=== PATIENT | male | born 1930 | race Caucasian/White ===

== ENCOUNTER 2018-04-29 08:16 | Day surgery (SDC) | payer MEDICARE, OTHER ==
[2018-04-28 14:29] LABS: BASOPHILS # (AUTO) 0.1 X10'3 (0-0.2); BASOPHILS % (AUTO) 1.6 % (0-1); EOSINOPHILS # (AUTO) 0.3 X10'3 (0-0.9); EOSINOPHILS % (AUTO) 3.2 % (0-6); LYMPHOCYTES # (AUTO) 1.2 X10'3 (1.1-4.8); MEAN CORPUSCULAR HEMOGLOBIN 29.7 PG (27.0-31.0); MEAN PLATELET VOLUME 9.8 FL (7.4-10.4); MONOCYTES # (AUTO) 0.8 X10'3 (0-0.9); MONOCYTES % (AUTO) 10.2 % (2-12); NEUTROPHILS # (AUTO) 5.6 X10'3 (1.8-7.7); PRE OP HEMATOCRIT 44.6 % (42.0-52.0); PRE OP HEMOGLOBIN 14.7 g/dL (14.0-17.9); PRE OP PLATELET COUNT 230 X10'3 (140-440); RED BLOOD COUNT 4.96 X10'6 (4.70-6.10); RED CELL DISTRIBUTION WIDTH 14.9 % (11.5-14.5)
[2018-04-28 14:29] LABS: CLARITY,URINE CLEAR (Clear); COLOR,URINE YELLOW (Yellow); GLUCOSE, URINE NEGATIVE (Neg); KETONES,URINE NEGATIVE (Neg); LEUKOCYTE ESTERASE ,URINE NEGATIVE (Neg); NITRITES, URINE NEGATIVE (Neg); OCCULT BLOOD,URINE NEGATIVE (Neg); PROTEIN,URINE NEGATIVE (Neg); UROBILINOGEN,URINE 0.2 E.U/dL (0.2-1.0)
[2018-04-28 14:33] LABS: UA COLLECTION TYPE VOIDED
[2018-04-28 14:42] LABS: ALBUMIN 3.5 G/DL (3.4-5.0); ALBUMIN/GLOBULIN RATIO 1.2 (1.1-1.5); ALKALINE PHOSPHATASE 92 IU/L (46-116); BLOOD UREA NITROGEN 16 MG/DL (7-18); BUN/CREATININE RATIO 14.4 (5.4-32.0); CALCIUM 8.7 MG/DL (8.5-10.1); CHLORIDE 107 MMOL/L (99-107); CREATININE 1.11 MG/DL (0.60-1.10); PRE OP ALT 29 U/L (30-65); PRE OP ANION GAP 8 (8-16); PRE OP AST 23 U/L (10-37); PRE OP BILIRUB, TOTAL 0.3 MG/DL (0.0-1.0); PRE OP GLUCOSE 97 MG/DL (70-104); PRE OP POTASSIUM 3.7 MMOL/L (3.4-5.1); PRE OP SODIUM 144 MMOL/L (135-145); TOTAL CARBON DIOXIDE 28.8 MMOL/L (24-32); TOTAL PROTEIN 6.5 G/DL (6.4-8.2); eGFR 63 ML/MIN
[~2018-04-29] VITALS: Ht 177.8 cm; Wt 92.4 kg
[2018-04-29] VITALS (14 sets, daily range): BP systolic 139–185; BP diastolic 78–113
[~2018-04-29 08:16] MED LIST: ALLO300T2 PO; COLC0.6T69 PO; FURO-150 PO; LISI2.5T2 PO; OMEP-84 PO; PRED1TAB PO; SYN0.0125T PO; clindamycin-Cleocin 900mg/D5W 50 ML IV ONE; famotidine 20mg tablet PO ONE; ringers solution, lacted 1,000 ML IV SCH
[2018-04-29] MEDS ORDERED: ROPIVAcaine 0.5% (5mg/ml) 30ml vial ONE (10:10)
[2018-04-29] MEDS ORDERED: midazolam 2 mg/2 ml injection ONE (10:58)
[2018-04-29] MEDS ORDERED: fentaNYL/PF 50MCG/1 ML 2ML syringe ONE (10:59)
[2018-04-29] MEDS ORDERED: hydrALAZINE 20mg/ml inj. IV PRN (11:15)
[2018-04-29] MEDS ORDERED: ondansetron/PF 4mg/2ml inj IV PRN (11:15)
[2018-04-29] MEDS ORDERED: meperidine/PF 25mg/ml syringe IV PRN ×3 (11:15)
[2018-04-29] MEDS ORDERED: ringers solution, lacted 1,000 ML IV ONE (11:15)
[2018-04-29] MEDS ORDERED: fentaNYL/PF 50MCG/1 ML 2ML syringe IV ONE (11:15)
[2018-04-29] MEDS ORDERED: labetalol 20mg/4ml (5mg/ml) syringe IV PRN (11:15)
[2018-04-29] MEDS ORDERED: fentaNYL/PF 50MCG/1 ML 2ML syringe IV PRN (11:15)
== END 2018-04-29 14:40 | disposition home or self-care (01) ==
LOC: PAS 08:16
PROVIDERS: ATTEND Surgery
DX: K64.3 Fourth degree hemorrhoids (principal); Z85.46 Personal history of malignant neoplasm of prostate; Z97.8 Presence of other specified devices; K21.9 Gastro-esophageal reflux disease without esophagitis; M10.9 Gout, unspecified; I10 Essential (primary) hypertension; M19.90 Unspecified osteoarthritis, unspecified site; Z98.890 Other specified postprocedural states; Z87.891 Personal history of nicotine dependence
CPT/HCPCS: 36415; 46947; 80053; 81003; 85025; 93005; A6224; A6449; J0360; J2175; J2250; J2795; J3010; J3490; J7120; 88304; A7000

== ENCOUNTER 2018-05-03 04:26 | Emergency (ER) | payer MEDICARE, OTHER ==
[~2018-05-03] VITALS: Ht 177.8 cm; Wt 95.4 kg
[~2018-05-03 04:26] MED LIST changes: -clindamycin-Cleocin 900mg/D5W 50 ML IV ONE; -famotidine 20mg tablet PO ONE; -ringers solution, lacted 1,000 ML IV SCH
[2018-05-03 05:48] VITALS: BP 130/80
[2018-05-03] MEDS ORDERED: lactulose 20gm/30ml cup PO ONE (06:15)
[2018-05-03] MEDS ORDERED: bisacodyl 5mg tablet.DR PO ONE (06:15)
[2018-05-03] MEDS ORDERED: magnesium hydroxide 30ml (MOM) UD suspension PO ONE (06:15)
== END 2018-05-03 06:41 | disposition home or self-care (01) ==
LOC: ER 04:26
DX: K59.00 Constipation, unspecified (principal); Z88.0 Allergy status to penicillin; Z88.5 Allergy status to narcotic agent; Z79.899 Other long term (current) drug therapy
CPT/HCPCS: 99284

== ENCOUNTER 2018-05-03 14:37 | Emergency (ER) | payer MEDICARE, OTHER ==
[~2018-05-03] VITALS: Ht 177.8 cm; Wt 95.5 kg
[2018-05-03] MEDS ORDERED: magnesium citrate 296ml oral solution PO ONE (16:05)
[2018-05-03] MEDS ORDERED: normal saline 1000ML IV soln IVB ONE (16:05)
[2018-05-03 16:23] VITALS: BP 134/83
== END 2018-05-03 18:07 | disposition home or self-care (01) ==
LOC: ER 14:37
DX: K59.00 Constipation, unspecified (principal); Z88.0 Allergy status to penicillin; Z88.5 Allergy status to narcotic agent; Z79.899 Other long term (current) drug therapy
CPT/HCPCS: 74018; 99284; J7030; 99283